=== PATIENT | female | born 1995 | race African-American/Black ===

== ENCOUNTER 2017-08-01 23:06 | Emergency (ER) | payer OTHER | END 2017-08-01 23:57 | disposition left against medical advice (07) | LOC: ER 23:06 | DX: M79.672 Pain in left foot (principal); M54.5 Low back pain; M54.6 Pain in thoracic spine; M54.2 Cervicalgia; W18.39XA Other fall on same level, initial encounter; Y93.89 Activity, other specified; Y99.8 Other external cause status; Y92.89 Other specified places as the place of occurrence of the external cause | CPT/HCPCS: 99281 ==

== ENCOUNTER 2018-01-02 12:42 | Emergency (ER) | payer OTHER ==
[2018-01-02 13:12] LABS: URINE HCG POC HCG POSITIVE (Negative)
[2018-01-02 13:22] LABS: BILIRUBIN,URINE NEGATIVE (NEG); CLARITY,URINE CLEAR; COLOR,URINE YELLOW; GLUCOSE,URINE NEGATIVE (NEG); NITRITE,URINE NEGATIVE (NEG); PH,URINE 7.5; PROTEIN,URINE NEGATIVE (NEG-TRACE)
[2018-01-02 13:53] LABS: BACTERIA,URINE 0 /HPF (0-FEW); RBC,URINE 0 /HPF (0-2); SQUAMOUS EPITHELIAL CELL,UR MANY /LPF
[2018-01-02 14:31] LABS: ADD MAN DIFF? NO
[2018-01-02 14:34] LABS: BASO % 0 % (0-3); EOS % 1 % (0-3); HEMATOCRIT 27.3 % (36.0-47.0); HEMOGLOBIN 9.3 g/dL (12.0-15.5); LYMPH # 1.3 x10^3/uL (1.0-4.8); LYMPH % 28 % (24-48); MEAN CORPUSCULAR HEMOGLOBIN 32 pg (25-35); MEAN CORPUSCULAR HGB CONC 34 g/dL (31-37); MEAN CORPUSCULAR VOLUME 93 fL (79-100); MONO # 0.4 x10^3/uL (0.0-1.1); MONO % 9 % (0-9); NEUT # 2.8 x10^3uL (1.8-7.7); NEUT % 62 % (31-73); PLATELET COUNT 267 x10^3/uL (140-400); RED BLOOD COUNT 2.94 x10^6/uL (3.50-5.40); RED CELL DISTRIBUTION WIDTH 13.1 % (11.5-14.5); WHITE BLOOD COUNT 4.6 x10^3/uL (4.0-11.0)
[2018-01-02 14:50] LABS: ANION GAP 10 (6-14); BLOOD UREA NITROGEN 9 mg/dL (7-20); BUN/CREATININE RATIO 15 (6-20); CALCIUM 8.6 mg/dL (8.5-10.1); CARBON DIOXIDE 26 mmol/L (21-32); CHLORIDE 104 mmol/L (98-107); CREATININE 0.6 mg/dL (0.6-1.0); GFR 148.6; GLUCOSE 102 mg/dL (70-99); POTASSIUM 3.3 mmol/L (3.5-5.1); SODIUM 140 mmol/L (136-145)
[2018-01-02 15:00] LABS: ALBUMIN 2.8 g/dL (3.4-5.0); ALBUMIN/GLOBULIN RATIO 0.8 (1.0-1.7); ALK PHOS 42 U/L (46-116); ALT (SGPT) 12 U/L (14-59); AST (SGOT) 13 U/L (15-37); LIPASE 134 U/L (73-393); TOTAL BILIRUBIN 0.2 mg/dL (0.2-1.0); TOTAL PROTEIN 6.4 g/dL (6.4-8.2)
[2018-01-03 14:27] LABS: CHLAMYDIA PROBE Negative (Negative); GC PROBE Negative (Negative)
== END 2018-01-02 16:15 | disposition home or self-care (01) ==
LOC: ER 16:15
DX: O23.42 Unspecified infection of urinary tract in pregnancy, second trimester (principal); O23.592 Infection of other part of genital tract in pregnancy, second trimester; N76.0 Acute vaginitis; B96.89 Other specified bacterial agents as the cause of diseases classified elsewhere; O99.012 Anemia complicating pregnancy, second trimester; D64.9 Anemia, unspecified; Z3A.19 19 weeks gestation of pregnancy; Z88.5 Allergy status to narcotic agent; Z88.6 Allergy status to analgesic agent; Z88.8 Allergy status to other drugs, medicaments and biological substances
CPT/HCPCS: 36415; 76805; 76817; 80053; 81001; 81025; 83690; 84702; 85025; 87086; 87491; 87591; 99285-25; Q0111

== ENCOUNTER 2019-06-13 14:43 | Emergency (ER) | payer SELFPAY ==
[~2019-06-13] VITALS: Ht 162.6 cm; Wt 45.4 kg
[~2019-06-13 14:43] MED LIST: CEPH500T PO; METR500T PO; PNV1TABL25 PO
[2019-06-13 15:00] VITALS: BP 119/71
--- NOTE | 2019-06-13 15:10 | PHYS DOC ---
Past Medical History Past Medical History: No Pertinent History Past Surgical History: Other Additional Past Surgical Histo: WISDOM TEETH Alcohol Use: None Drug Use: None Adult General Chief Complaint Chief Complaint: OTHER COMPLAINTS HPI HPI Patient is a 24 year old female who presents after bumping her right lower leg against an unknown object last night around 4 AM. The patient has a small skin tear to the lower leg and says is similar bleeding ever since. Denies any other complaints. Review of Systems Review of Systems Constitutional: Denies fever or chills [] Eyes: Denies change in visual acuity, redness, or eye pain [] HENT: Denies nasal congestion or sore throat [] Respiratory: Denies cough or shortness of breath [] Cardiovascular: No additional information not addressed in HPI [] GI: Denies abdominal pain, nausea, vomiting, bloody stools or diarrhea [] : Denies dysuria or hematuria [] Musculoskeletal: Denies back pain or joint pain [] Integument: Reports skin tear to R lower leg. Neurologic: Denies headache, focal weakness or sensory changes [] Endocrine: Denies polyuria or polydipsia [] Complete systems were reviewed and found to be within normal limits, except as documented in this note. Allergies Allergies Allergies Coded Allergies Type Severity Reaction Last Updated Verified acetaminophen Allergy Intermediate Itching 01/02/18 Yes oxycodone Allergy Intermediate Itching 01/02/18 Yes tioconazole Allergy Intermediate 01/02/18 Yes Physical Exam Physical Exam Constitutional: Well developed, well nourished, no acute distress, non-toxic appearance. [] HENT: Normocephalic, atraumatic, bilateral external ears normal, oropharynx moist, no oral exudates, nose normal. [] Eyes: PERRLA, EOMI, conjunctiva normal, no discharge. [] Neck: Normal range of motion, no tenderness, supple, no stridor. [] Skin: 0.25 cm skin tear to R lower leg. No bleeding noted at this time. Back: No tenderness, no CVA tenderness. [] Extremities: No tenderness, no cyanosis, no clubbing, ROM intact, no edema. [] Neurologic: Alert and oriented X 3, normal motor function, normal sensory function, no focal deficits noted. [] Psychologic: Affect normal, judgement normal, mood normal. [] EKG EKG [] Radiology/Procedures Radiology/Procedures [] Course & Med Decision Making Course & Med Decision Making Pertinent Labs and Imaging studies reviewed. (See chart for details) A medical screening exam was performed on this patient and the patient does not appear to be having a medical emergency. Her symptoms are not of sufficient severity and within reasonable medical probability it is unlikely the absence of immediate medical attention would result in placing the health of the individual (or, with respect to a woman, the health of the woman or her unborn child) in serious jeopardy, serious impairment to bodily functions, or serious dysfunction of any bodily organ or part. If , the patient is not in labor Discussed with patient to put neosporin on wound and keep dressed. Dragon Disclaimer Dragon Disclaimer This electronic medical record was generated, in whole or in part, using a voice recognition dictation system. Departure Departure Impression: Primary Impression: Encounter for medical screening examination Disposition: HOME, SELF-CARE Condition: STABLE Referrals: NO PCP (PCP) Patient Instructions: Medical Screening Exam Additional Instructions: Thank you for visiting [facility]. We appreciate you trusting us with your care. If any additional problems come up don't hesitate to return to visit us. Please follow up with your primary care provider so they can plan additional care if needed and know about the problem that you had. If symptoms worsen come back to the Emergency Department. Any concerning symptoms that start such as chest pain, shortness of air, weakness or numbness on one side of the body, running high fevers or any other concerning symptoms return to the ER. SKIP SALAZAR APRN Jun 13, 2019 15:10
== END 2019-06-13 15:15 | disposition home or self-care (01) ==
LOC: ER 14:43
DX: S81.811A Laceration without foreign body, right lower leg, initial encounter (principal); Z88.5 Allergy status to narcotic agent; Z88.6 Allergy status to analgesic agent; Z88.8 Allergy status to other drugs, medicaments and biological substances; Y28.8XXA Contact with other sharp object, undetermined intent, initial encounter; Y93.89 Activity, other specified; Y92.89 Other specified places as the place of occurrence of the external cause; Y99.8 Other external cause status
CPT/HCPCS: 99281

== ENCOUNTER 2020-02-12 20:30 | Emergency (ER) | payer SELFPAY ==
[~2020-02-12] VITALS: Ht 162.6 cm; Wt 45.0 kg
[2020-02-12] MEDS ORDERED: KETOROLAC 30 MG/ML VIAL. IVP ONE (21:45)
[2020-02-12 21:47] LABS: BASO % 1 % (0-3); EOS % 1 % (0-3); HEMATOCRIT 34.1 % (36.0-47.0); HEMOGLOBIN 11.7 g/dL (12.0-15.5); LYMPH # 1.4 x10^3/uL (1.0-4.8); LYMPH % 19 % (24-48); MEAN CORPUSCULAR HEMOGLOBIN 31 pg (25-35); MEAN CORPUSCULAR HGB CONC 34 g/dL (31-37); MEAN CORPUSCULAR VOLUME 91 fL (79-100); MONO # 0.6 x10^3/uL (0.0-1.1); MONO % 8 % (0-9); NEUT # 5.2 x10^3/uL (1.8-7.7); NEUT % 72 % (31-73); PLATELET COUNT 370 x10^3/uL (140-400); RED BLOOD COUNT 3.73 x10^6/uL (3.50-5.40); RED CELL DISTRIBUTION WIDTH 12.9 % (11.5-14.5); WHITE BLOOD COUNT 7.3 x10^3/uL (4.0-11.0)
[2020-02-12 21:49] LABS: BILIRUBIN,URINE NEGATIVE (NEG); CLARITY,URINE CLEAR; COLOR,URINE YELLOW; NITRITE,URINE NEGATIVE (NEG); PH,URINE 7.5 (<5.0-8.0); PROTEIN,URINE NEGATIVE (NEG-TRACE)
[2020-02-12 21:53] LABS: CALCIUM 8.9 mg/dL (8.5-10.1); CREATININE 0.9 mg/dL (0.6-1.0); GFR 90.9; POTASSIUM 3.4 mmol/L (3.5-5.1)
--- NOTE | 2020-02-12 21:53 | PHYS DOC ---
Past Medical History Past Medical History: UTI (ALMAS JAQUEZ APRN) Past Surgical History: Other Additional Past Surgical Histo: WISDOM TEETH (ALMAS JAQUEZ APRN) Smoking Status: Current Some Day Smoker Alcohol Use: Occasionally Drug Use: None (ALMAS JAQUEZ APRN) General Adult EDM: Chief Complaint: ABDOMINAL PAIN HPI: HPI: Patient is a 25 year old [female patient who presents from home complaining of abdominal pain, constipation, vaginal discharge. Patient reports proximally 3 to 4 days ago she was having anal sex, after that she started to have some lower abdominal discomfort. States she always has a little vaginal discharge, however over the last 2 days it has become itchy, with more discharge. States she has just finished her menstrual cycle, had tried some Monistat as she usually has a yeast infection following her menses, but cannot use it anymore because it causes her to break out. States she thinks there might be a problem with her bowels as she has not had a good bowel movement for several days. States she has had diarrhea yesterday and some today, would also reports she had taken some milk of magnesia yesterday. Patient continues to report she thinks most of these symptoms are related to when she had anal sex. (ALMAS JAQUEZ APRN) Review of Systems: Review of Systems: Constitutional: Denies fever or chills. [] Respiratory: Denies cough or shortness of breath. [] Cardiovascular: Denies chest pain or edema. [] GI: Reports intermittent abdominal pain, denies nausea, denies vomiting, denies bloody stool, states she infrequently has bowel movements normally, had diarrhea yesterday and a small episode of diarrhea today : Denies dysuria. [Does report she has had some whitish vaginal discharge today] Musculoskeletal: Denies back pain or joint pain. [] Psychiatric: Denies depression or anxiety. [] (ALMAS JAQUEZ APRN) Heart Score: Risk Factors: Risk Factors: DM, Current or recent (<one month) smoker, HTN, HLP, family history of CAD, obesity. Risk Scores: Score 0 - 3: 2.5% MACE over next 6 weeks - Discharge Home Score 4 - 6: 20.3% MACE over next 6 weeks - Admit for Clinical Observation Score 7 - 10: 72.7% MACE over next 6 weeks - Early Invasive Strategies (ALMAS JAQUEZ APRN) Allergies: Allergies: Allergies Coded Allergies Type Severity Reaction Last Updated Verified acetaminophen Allergy Intermediate Itching 01/02/18 Yes oxycodone Allergy Intermediate Itching 01/02/18 Yes tioconazole Allergy Intermediate 01/02/18 Yes (ALMAS JAQUEZ APRN) Physical Exam: PE: Constitutional: Well developed, well nourished, no acute distress, non-toxic appearance. Conversational [] HENT: Normocephalic, atraumatic, nose normal. [] Eyes: PERRLA, EOMI, conjunctiva normal, no discharge. [] Neck: Normal range of motion, no tenderness, supple, no stridor. [] Cardiovascular:Heart rate regular rhythm, no murmur [] Lungs & Thorax: Bilateral breath sounds clear to auscultation [] Abdomen: Bowel sounds normal, soft, no tenderness, no masses, no pulsatile masses. [] Skin: Warm, dry, no erythema, no rash. [] Back: No tenderness, no CVA tenderness. [] Extremities: No tenderness, no cyanosis, no clubbing, ROM intact, no edema. [] Neurologic: Alert and oriented X 3, normal motor function, normal sensory function, no focal deficits noted. [] Psychologic: Affect normal, judgement normal, mood normal. [] (ALMAS JAQUEZ APRN) Current Patient Data: Labs: Laboratory Tests Test 02/12/20 20:54 POC Urine HCG, Qualitative Hcg negative (Negative) Vital Signs: Vital Signs Date Time Temp Pulse Resp B/P (MAP) Pulse Ox O2 Delivery O2 Flow Rate FiO2 02/12/20 21:15 99.3 90 20 115/64 (81) 100 Room Air 99.3 (ALMAS JAQUEZ APRN) EKG: EKG: [] (ALMAS JAQUEZ APRN) Radiology/Procedures: Radiology/Procedures: [] PATIENT: FRANK MUNOZ MACCOUNT: [id number] : 1995 LOCATION: ER AGE: 25 SEX: F EXAM STATUS: REG ER ORD. PHYSICIAN: ALMAS JAQUEZ APRN REASON: constipation PROCEDURE: KUB Examination: KUB History: Reason: constipation / Spl. Instructions: / History: Comparison/Correlation: None Findings: Frontal view of the abdomen was obtained. Debris within the stomach noted. No significantly distended bowel noted. No significant stool within the colon. Linear density overlies the midline of the upper sacrum. Correlate for external artifact. Bony structures are unremarkable. No suspicious calcific patients. Impression: No bowel obstruction or findings of significant stool in the colon. Electronically signed by: Ruy Hernandez MD (02/12/2020 10:48 PM) [facility] DICTATED and SIGNED BY: RUY HERNANDEZ MD DATE: 02/12/202247 (ALMAS JAQUEZ APRN) Course & Med Decision Making: Course & Med Decision Making Pertinent Labs and Imaging studies reviewed. (See chart for details) [] Reviewed imaging and lab results patient, with noted trichomonas. Discussed treatment here versus patient taking medication at home, patient reports she rather take at home where she has food and can rest afterwards. Discussed importance of ensuring sexual partner is aware of her diagnosis, and importance of him being treated as well. Patient reports understanding with this. Discussed importance of hydration, discussed safer sex practices especially while being treated for trichomonas. Discussed fungal primary care, provided options for patient to follow-up with primary care to further manage her conditions as well as to manage a lipoma on her neck, as well as other concern she has. Patient in agreement with this plan with no further questions or concerns (ALMAS JAQUEZ APRN) Dragon Disclaimer: Dragon Disclaimer: This electronic medical record was generated, in whole or in part, using a voice recognition dictation system. (ALMAS JAQUEZ APRN) Departure Departure Impression: Primary Impression: Trichomoniasis Disposition: HOME, SELF-CARE Condition: GOOD Referrals: NO PCP (PCP) Patient Instructions: Trichomoniasis Additional Instructions: As discussed, make sure you are taking the antibiotic, to be 4 pills all at one time. Take these with some food. Afterwards rest see you do not get upset stomach and vomit them. Make sure that your partner is aware that he needs to be treated as well for trichomonas. No alcohol use for 24 hours before taking the medication or for 48 hours after taking medication otherwise he may become very ill. Try to get into a primary care clinic as we were discussing, to manage her conditions long-term. Try to avoid having intercourse for the next 7 days well your body is recovering from trichomonas, if you going to, make sure using condoms. If you can to continue to having sex, make sure that you are using plenty lubrication to ensure that she did not have additional discomfort. The alice on your neck appears to be a lipoma, you can talk to your primary care provider when you find one to determine if they are comfortable removing that or if they wanted to do further assessment on this. You can take Tylenol or ibuprofen for discomfort as needed. You can take your next dose of ibuprofen when you get up in the morning. Scripts Metronidazole (METRONIDAZOLE) 500 Mg Tablet 2000 MG PO ONCE, #4 TAB Take all 4 tablets at once, take it with food and plenty of water. Avoid alcohol for 48 hours after taking the medication Prov: ALMAS JAQUEZ APRN 02/13/20 Justicifation of Admission Dx: Justifications for Admission: Justification of Admission Dx: N/A (ALMAS JAQUEZ APRN) Attending Signature Attending Signature I have reviewed the PA/PROCUREMENT CONSULTANT's note and plan of care. I was available for consultation as needed during the patient's visit in the emergency department. I agree with the clinical impression, plan, and disposition. (SKIP BRADEN DO) ALMAS JAQUEZ APRN Feb 12, 2020 21:53 SKIP BRADEN DO Feb 13, 2020 02:05
[2020-02-12 21:59] LABS: BACTERIA,URINE MOD /HPF (0-FEW); RBC,URINE 0 /HPF (0-2); SQUAMOUS EPITHELIAL CELL,UR FEW /LPF
--- NOTE | 2020-02-12 22:50 | RAD ---
Examination: KUB History: Reason: constipation / Spl. Instructions: / History: Comparison/Correlation: None Findings: Frontal view of the abdomen was obtained. Debris within the stomach noted. No significantly distended bowel noted. No significant stool within the colon. Linear density overlies the midline of the upper sacrum. Correlate for external artifact. Bony structures are unremarkable. No suspicious calcific patients. Impression: No bowel obstruction or findings of significant stool in the colon. Electronically signed by: Ruy Quiroz MD (02/12/2020 10:48 PM) [facility]
[2020-02-13] MEDS ORDERED: METR-34 PO (00:06)
[2020-02-13 01:24] VITALS: BP 110/69
[2020-02-16 00:08] LABS: GC PROBE Negative (Negative)
== END 2020-02-13 01:28 | disposition home or self-care (01) ==
LOC: ER 20:30
DX: A59.9 Trichomoniasis, unspecified (principal); R10.30 Lower abdominal pain, unspecified; R19.7 Diarrhea, unspecified; Z87.891 Personal history of nicotine dependence; Z98.890 Other specified postprocedural states; Z88.5 Allergy status to narcotic agent; Z88.6 Allergy status to analgesic agent; Z88.8 Allergy status to other drugs, medicaments and biological substances
CPT/HCPCS: 36415; 74018; 80048; 81001; 81025; 85025; 87491; 87591; 96374; 99284; J1885; Q0111

== ENCOUNTER 2020-02-14 11:22 | Emergency (ER) | payer SELFPAY ==
[2020-02-13 01:24] VITALS: BP 110/69
[~2020-02-14 11:22] MED LIST changes: +METR-34 PO
== END 2020-02-14 11:48 | disposition left against medical advice (07) ==
LOC: ER 11:22
DX: Z76.0 Encounter for issue of repeat prescription (principal); Z53.21 Procedure and treatment not carried out due to patient leaving prior to being seen by health care provider

== ENCOUNTER 2020-02-16 23:46 | Emergency (ER) | payer SELFPAY ==
[~2020-02-16] VITALS: Ht 162.6 cm; Wt 45.4 kg
[2020-02-17] MEDS ORDERED: ONDANSETRON PF 4 MG/2 ML VIAL. IV ONE (00:15)
[2020-02-17] MEDS ORDERED: fentaNYL PF VIAL 100 MCG/2 ML VIAL IV ONE (00:15)
[2020-02-17] MEDS ORDERED: IV NORMAL SALINE 1000ML BAG 1,000 ML IV ONE (00:15)
[2020-02-17 00:18] LABS: BASO % 0 % (0-3); EOS % 0 % (0-3); HEMATOCRIT 32.5 % (36.0-47.0); HEMOGLOBIN 10.9 g/dL (12.0-15.5); LYMPH # 1.9 x10^3/uL (1.0-4.8); LYMPH % 25 % (24-48); MEAN CORPUSCULAR HEMOGLOBIN 30 pg (25-35); MEAN CORPUSCULAR HGB CONC 34 g/dL (31-37); MEAN CORPUSCULAR VOLUME 90 fL (79-100); MONO # 0.7 x10^3/uL (0.0-1.1); MONO % 9 % (0-9); NEUT # 4.9 x10^3/uL (1.8-7.7); NEUT % 65 % (31-73); PLATELET COUNT 444 x10^3/uL (140-400); RED CELL DISTRIBUTION WIDTH 13.3 % (11.5-14.5); WHITE BLOOD COUNT 7.5 x10^3/uL (4.0-11.0)
[2020-02-17 00:26] LABS: BILIRUBIN,URINE NEGATIVE (NEG); CLARITY,URINE CLEAR; COLOR,URINE AMBER; NITRITE,URINE NEGATIVE (NEG); PH,URINE 8.5 (<5.0-8.0); PROTEIN,URINE NEGATIVE (NEG-TRACE)
[2020-02-17 00:27] LABS: CALCIUM 9.1 mg/dL (8.5-10.1); GFR 80.5; POTASSIUM 3.5 mmol/L (3.5-5.1)
[2020-02-17 00:32] LABS: ALBUMIN 3.5 g/dL (3.4-5.0); ALBUMIN/GLOBULIN RATIO 0.8 (1.0-1.7); TOTAL BILIRUBIN 0.4 mg/dL (0.2-1.0); TOTAL PROTEIN 8.1 g/dL (6.4-8.2)
[2020-02-17 00:34] LABS: BACTERIA,URINE FEW /HPF (0-FEW); RBC,URINE RARE /HPF (0-2); SQUAMOUS EPITHELIAL CELL,UR MOD /LPF
[2020-02-17] MEDS ORDERED: IOHEXOL 300 MG/ML 100ML VIAL. IV ONE (00:45)
[2020-02-17] MEDS ORDERED: CONTRAST GIVEN. MC PRN (00:45)
--- NOTE | 2020-02-17 01:26 | RAD ---
CT abdomen and pelvis with contrast: Reason for examination: Abdominal pain. Helical images were obtained through the abdomen pelvis with intravenous administration of 75 cc Omnipaque 300. Reconstruction was performed in sagittal and coronal planes. Exposure: One or more of the following individualized dose reduction techniques were utilized for this examination: 1. Automated exposure control 2. Adjustment of the mA and/or kV according to patient size 3. Use of iterative reconstruction technique. The lung bases are clear. The heart size is normal with no pericardial effusion. No abnormality seen at the liver, spleen, adrenal glands, gallbladder or pancreas. The kidneys show no renal masses, renal calculi, hydronephrosis or evidence of obstructive uropathy. The colon shows no diverticulosis or diverticulitis or colitis. There is very little intra-abdominal fat and the appendix is not optimally visualized. Small intestinal tract shows no abnormal dilatation or evidence of bowel obstruction. No abnormality seen at the stomach. The abdominal aorta and inferior vena cava show no gross abnormalities. The bladder is not optimally distended. The uterus is somewhat heterogeneous. In the adnexa probably within the ovaries appear to be complex cystic lesions measuring 4.5 cm on the right and 3.3 cm on the left. Further evaluation with ultrasound should be considered. No definite free fluid is seen. No acute bony abnormalities are present. IMPRESSION: Heterogeneous density to the uterus. Complex cystic appearing lesions bilaterally in the adnexa probably ovarian. Recommend further evaluation with pelvic ultrasound. Electronically signed by: Breanna Gracia MD (02/17/2020 1:23 AM) [id number]
[2020-02-17] MEDS ORDERED: NAPR-514 PO (01:36)
--- NOTE | 2020-02-17 01:36 | PHYS DOC ---
Past Medical History Past Medical History: UTI Past Surgical History: Other Additional Past Surgical Histo: WISDOM TEETH Smoking Status: Current Every Day Smoker Alcohol Use: Occasionally Drug Use: None General Adult EDM: Chief Complaint: ABDOMINAL PAIN HPI: HPI: Patient is a 25-year-old female who presents with a 3-day history of right-sided abdominal pain. She states the pain started around the time of her menstrual cycle. She states it waxed and waned but now seems constant. She denies any nausea or vomiting. She has had no fever chills or sweats. No dysuria or gross hematuria.] Review of Systems: Review of Systems: Constitutional: Denies fever or chills. [] Eyes: Denies change in visual acuity. [] HENT: Denies nasal congestion or sore throat. [] Respiratory: Denies cough or shortness of breath. [] Cardiovascular: Denies chest pain or edema. [] GI: Per HPI. [] : Per HPI [] Musculoskeletal: Denies back pain or joint pain. [] Integument: Denies rash. [] Neurologic: Denies headache, focal weakness or sensory changes. [] Endocrine: Denies polyuria or polydipsia. [] Lymphatic: Denies swollen glands. [] Psychiatric: Denies depression or anxiety. [] Heart Score: Risk Factors: Risk Factors: DM, Current or recent (<one month) smoker, HTN, HLP, family history of CAD, obesity. Risk Scores: Score 0 - 3: 2.5% MACE over next 6 weeks - Discharge Home Score 4 - 6: 20.3% MACE over next 6 weeks - Admit for Clinical Observation Score 7 - 10: 72.7% MACE over next 6 weeks - Early Invasive Strategies Current Medications: Current Medications Medications (Trade) Dose Ordered Sig/Marta Start Time Stop Time Status Last Admin Dose Admin Fentanyl Citrate (Fentanyl 2ml Vial) 50 mcg 1X ONCE 02/17/20 00:15 02/17/20 00:16 DC 02/17/20 00:32 50 MCG Info (CONTRAST GIVEN -- Rx MONITORING) 1 each PRN DAILY PRN 02/17/20 00:45 02/19/20 00:44 Iohexol (Omnipaque 300 Mg/ml) 75 ml 1X ONCE 02/17/20 00:45 02/17/20 00:46 DC 02/17/20 00:55 75 ML Ondansetron HCl (Zofran) 4 mg 1X ONCE 02/17/20 00:15 02/17/20 00:16 DC 02/17/20 00:31 4 MG Sodium Chloride 1,000 ml @ 1,000 mls/hr 1X ONCE 02/17/20 00:15 02/17/20 01:14 DC 02/17/20 00:30 1,000 MLS/HR Allergies: Allergies: Allergies Coded Allergies Type Severity Reaction Last Updated Verified acetaminophen Allergy Intermediate Itching 01/02/18 Yes oxycodone Allergy Intermediate Itching 01/02/18 Yes tioconazole Allergy Intermediate 01/02/18 Yes Physical Exam: PE: Constitutional: Well developed, well nourished, moderate distress, non-toxic appearance. [] HENT: Normocephalic, atraumatic, bilateral external ears normal, oropharynx moist, no oral exudates, nose normal. [] Eyes: PERRLA, EOMI, conjunctiva normal, no discharge. [] Neck: Normal range of motion, no tenderness, supple, no stridor. [] Cardiovascular:Heart rate regular rhythm, no murmur [] Lungs & Thorax: Bilateral breath sounds clear to auscultation [] Abdomen: Diffusely tender to palp no rebound or guarding bowel sounds x4 quadrants. [] Skin: Warm, dry, no erythema, no rash. [] Back: No tenderness, no CVA tenderness. [] Extremities: No tenderness, no cyanosis, no clubbing, ROM intact, no edema. [] Neurologic: Alert and oriented X 3, normal motor function, normal sensory function, no focal deficits noted. [] Psychologic: Extremely anxious [] Current Patient Data: Labs: Laboratory Tests Test 02/17/20 00:10 02/17/20 00:11 02/17/20 00:24 White Blood Count 7.5 x10^3/uL (4.0-11.0) Red Blood Count 3.60 x10^6/uL (3.50-5.40) Hemoglobin 10.9 g/dL (12.0-15.5) L Hematocrit 32.5 % (36.0-47.0) L Mean Corpuscular Volume 90 fL (79-100) Mean Corpuscular Hemoglobin 30 pg (25-35) Mean Corpuscular Hemoglobin Concent 34 g/dL (31-37) Red Cell Distribution Width 13.3 % (11.5-14.5) Platelet Count 444 x10^3/uL (140-400) H Neutrophils (%) (Auto) 65 % (31-73) Lymphocytes (%) (Auto) 25 % (24-48) Monocytes (%) (Auto) 9 % (0-9) Eosinophils (%) (Auto) 0 % (0-3) Basophils (%) (Auto) 0 % (0-3) Neutrophils # (Auto) 4.9 x10^3/uL (1.8-7.7) Lymphocytes # (Auto) 1.9 x10^3/uL (1.0-4.8) Monocytes # (Auto) 0.7 x10^3/uL (0.0-1.1) Eosinophils # (Auto) 0.0 x10^3/uL (0.0-0.7) Basophils # (Auto) 0.0 x10^3/uL (0.0-0.2) Sodium Level 138 mmol/L (136-145) Potassium Level 3.5 mmol/L (3.5-5.1) Chloride Level 100 mmol/L (98-107) Carbon Dioxide Level 29 mmol/L (21-32) Anion Gap 9 (6-14) Blood Urea Nitrogen 7 mg/dL (7-20) Creatinine 1.0 mg/dL (0.6-1.0) Estimated GFR (Cockcroft-Gault) 80.5 BUN/Creatinine Ratio 7 (6-20) Glucose Level 87 mg/dL (70-99) Calcium Level 9.1 mg/dL (8.5-10.1) Total Bilirubin 0.4 mg/dL (0.2-1.0) Aspartate Amino Transferase (AST) 13 U/L (15-37) L Alanine Aminotransferase (ALT) 15 U/L (14-59) Alkaline Phosphatase 56 U/L (46-116) Total Protein 8.1 g/dL (6.4-8.2) Albumin 3.5 g/dL (3.4-5.0) Albumin/Globulin Ratio 0.8 (1.0-1.7) L Lipase 77 U/L (73-393) Urine Collection Type Unknown Urine Color Elisabeth Urine Clarity Clear Urine pH 8.5 (<5.0-8.0) Urine Specific [place] 1.015 (1.000-1.030) Urine Protein Negative mg/dL (NEG-TRACE) Urine Glucose (UA) Negative mg/dL (NEG) Urine Ketones (Stick) 15 mg/dL (NEG) Urine Blood Negative (NEG) Urine Nitrite Negative (NEG) Urine Bilirubin Negative (NEG) Urine Urobilinogen Dipstick 1.0 mg/dL (0.2 mg/dL) Urine Leukocyte Esterase Small (NEG) Urine RBC Rare /HPF (0-2) Urine WBC 5-10 /HPF (0-4) Urine Squamous Epithelial Cells Mod /LPF Urine Bacteria Few /HPF (0-FEW) POC Urine HCG, Qualitative Hcg negative (Negative) Laboratory Tests 02/17/20 00:10 Laboratory Tests 02/17/20 00:10 Vital Signs: Vital Signs Date Time Temp Pulse Resp B/P (MAP) Pulse Ox O2 Delivery O2 Flow Rate FiO2 02/17/20 00:32 18 100 Room Air 02/17/20 00:15 98.3 77 135/81 (99) 98.3 EKG: EKG: [] Radiology/Procedures: Radiology/Procedures: []REASON: abdominal pain PROCEDURE: CT ABD PELV W/ IV CONTRST ONLY CT abdomen and pelvis with contrast: Reason for examination: Abdominal pain. Helical images were obtained through the abdomen pelvis with intravenous administration of 75 cc Omnipaque 300. Reconstruction was performed in sagittal and coronal planes. Exposure: One or more of the following individualized dose reduction techniques were utilized for this examination: 1. Automated exposure control 2. Adjustment of the mA and/or kV according to patient size 3. Use of iterative reconstruction technique. The lung bases are clear. The heart size is normal with no pericardial effusion. No abnormality seen at the liver, spleen, adrenal glands, gallbladder or pancreas. The kidneys show no renal masses, renal calculi, hydronephrosis or evidence of obstructive uropathy. The colon shows no diverticulosis or diverticulitis or colitis. There is very little intra-abdominal fat and the appendix is not optimally visualized. Small intestinal tract shows no abnormal dilatation or evidence of bowel obstruction. No abnormality seen at the stomach. The abdominal aorta and inferior vena cava show no gross abnormalities. The bladder is not optimally distended. The uterus is somewhat heterogeneous. In the adnexa probably within the ovaries appear to be complex cystic lesions measuring 4.5 cm on the right and 3.3 cm on the left. Further evaluation with ultrasound should be considered. No definite free fluid is seen. No acute bony abnormalities are present. IMPRESSION: Heterogeneous density to the uterus. Complex cystic appearing lesions bilaterally in the adnexa probably ovarian. Recommend further evaluation with pelvic ultrasound. Course & Med Decision Making: Course & Med Decision Making Pertinent Labs and Imaging studies reviewed. (See chart for details) [ED course: Evaluation reveals a 25-year-old female with abdominal pain. CT scan showed complex ovarian cysts bilaterally. I discussed this with the arin ent and let her know that she would need to follow-up with an LINEN ROOM WORKER very soon to schedule an ultrasound. This is likely related to her menstrual cycle.] Dragon Disclaimer: Dragon Disclaimer: This electronic medical record was generated, in whole or in part, using a voice recognition dictation system. Departure Departure Impression: Primary Impression: Ovarian cyst Qualified Codes: N83.201 - Unspecified ovarian cyst, right side; N83.202 - Unspecified ovarian cyst, left side Disposition: HOME, SELF-CARE Condition: STABLE Referrals: NO PCP (PCP) JANIE JONES Jr, MD Follow with a fishing tool operator to schedule an ultrasound to further evaluate your ovarian cysts Patient Instructions: Abdominal Pain, Ovarian Cyst Additional Instructions: It is very important that you follow with a fishing tool operator to have an ultrasound to further evaluate your ovarian cyst Scripts Naproxen (NAPROXEN) 500 Mg Tablet 1 TAB PO BID PRN for PAIN, #30 TAB 1 Refill Prov: ROLLY SETHI DO 02/17/20 Justicifation of Admission Dx: Justifications for Admission: Justification of Admission Dx: ROLLY Singh DO Feb 17, 2020 01:36
[2020-02-17 01:40] VITALS: BP 108/65
== END 2020-02-17 02:10 | disposition home or self-care (01) ==
LOC: ER 23:46
DX: N83.201 Unspecified ovarian cyst, right side (principal); N83.202 Unspecified ovarian cyst, left side; F17.200 Nicotine dependence, unspecified, uncomplicated; Z98.890 Other specified postprocedural states; Z88.5 Allergy status to narcotic agent; Z88.8 Allergy status to other drugs, medicaments and biological substances
CPT/HCPCS: 36415; 74177; 80053; 81001; 81025; 83690; 85025; 87086; 96374; 96375; 99285; J2405; J3010; J7030; Q9967

== ENCOUNTER 2021-03-11 14:04 | Emergency (ER) | payer SELFPAY ==
[~2021-03-11] VITALS: Ht 162.6 cm; Wt 50.0 kg
[~2021-03-11 14:04] MED LIST changes: +NAPR-514 PO
[2021-03-11 14:08] VITALS: BP 98/55
[2021-03-11] MEDS ORDERED: ACYC-12 PO (14:38)
--- NOTE | 2021-03-11 14:44 | PHYS DOC ---
Past Medical History Past Medical History: UTI Past Surgical History: Other Additional Past Surgical Histo: WISDOM TEETH Smoking Status: Current Every Day Smoker Alcohol Use: Occasionally Drug Use: None General Adult EDM: Chief Complaint: MEDICATION REFILL HPI: HPI: 26-year-old -I[place] female presents the ED requesting acyclovir medication refill. Patient states she has a history of herpes labialis for the past years has had an outbreak on her right inner labia for the past 3 days. States her primary care physician is no longer in practice and is unable to obtain a medication refill. Reports normal menses every month. Is not taking any prescribed medications. Is sexually active but denies any abnormal vaginal discharge, itching or odor. No active vaginal bleeding, dysuria, hematuria, fever, flank pain, nausea or vomiting. Review of Systems: Review of Systems: Constitutional: Denies fever or chills. [] Eyes: Denies change in visual acuity. [] HENT: Denies nasal congestion or sore throat. [] Respiratory: Denies cough or shortness of breath. [] Cardiovascular: Denies chest pain or edema. [] GI: Denies abdominal pain, nausea, vomiting, : Denies dysuria or hematuria Musculoskeletal: Denies back pain or joint pain. [] Integument: Denies diaphoresis or purulent drainage Neurologic: Denies focal weakness or sensory changes. [] Psychiatric: Denies depression or anxiety. [] Heart Score: C/O Chest Pain: No Risk Factors: Risk Factors: DM, Current or recent (<one month) smoker, HTN, HLP, family history of CAD, obesity. Risk Scores: Score 0 - 3: 2.5% MACE over next 6 weeks - Discharge Home Score 4 - 6: 20.3% MACE over next 6 weeks - Admit for Clinical Observation Score 7 - 10: 72.7% MACE over next 6 weeks - Early Invasive Strategies Allergies: Allergies: Allergies Coded Allergies Type Severity Reaction Last Updated Verified acetaminophen Allergy Intermediate Itching 01/02/18 Yes oxycodone Allergy Intermediate Itching 01/02/18 Yes tioconazole Allergy Intermediate 01/02/18 Yes Physical Exam: PE: Constitutional: Well developed, well nourished, no acute distress, non-toxic appearance, very lean and thin HENT: Normocephalic, atraumatic, Eyes: EOMI, conjunctiva normal, no discharge. Neck: Normal range of motion, supple, Cardiovascular: S1/2 present, regular rhythm Lungs & Thorax: Speaking in full sentences, bilateral equal chest rise, no tachypnea or increased work of breathing Skin: Warm, dry, no erythema, no rash. [] Back: No tenderness, no CVA tenderness. [] Extremities: No tenderness, no cyanosis, Neurologic: Alert and oriented X 3, normal motor function, normal sensory function, no focal deficits noted. [] Psychologic: Affect normal, judgement normal, mood normal. [] Pelvic: pt declines Current Patient Data: Vital Signs: Vital Signs Date Time Temp Pulse Resp B/P (MAP) Pulse Ox O2 Delivery O2 Flow Rate FiO2 03/11/21 14:08 98.2 68 16 98/55 (79) 100 Room Air 98.2 EKG: EKG: [] Radiology/Procedures: Radiology/Procedures: [] Course & Med Decision Making: Course & Med Decision Making Pertinent Labs and Imaging studies reviewed. (See chart for details) Encounter for medication refill for acyclovir. Patient does state this is her second outbreak but is declining physical exam due to uncomfortable nature. Is also declining urinalysis for test. Patient denies any associated rash or increased warmth to infection. Will prescribe cefdinir for 7 days. Patient hemodynamically stable. Will discharge home with strict ED return precautions were given for rash, fever, redness or worsening vaginal pain. Encouraged urgent outpatient follow-up with PMD. Life-threatening processes were considered but are low suspicion at this time, given history, physical exam and ED workup. Pt was educated on all prescription medications and adverse effects. All patient's questions were answered and pt was stable at time of discharge. Life/limb-threatening differential includes but is not limited to, erythema multiforme, moreau-izabella syndrome, toxic epidermal necrolysis, staphylococcal scalded skin syndrome, necrotizing fasciitis/myositis/cellulitis, purpura fulminans, heparin or warfarin induced skin necrosis, angioedema, anaphylaxis drug rash, disseminated intravascular coagulation, disseminated gonococcal disease, vasculitis, septicemia, petechial disorder or coagulopathy, viral exanthem, Kawasaki's disease or life-threatening burn requiring burn center management or escharotomy. I have spoken with the patient and/or caregivers. I explained the patient's condition, diagnoses and treatment plan based on the information available to me at this time. I have answered the patient and/or caregiver's questions and addressed any concerns. The patient and/or caregivers have a good understanding of patient's diagnosis, condition and treatment plan as can be expected at this point. Vital signs have been stable. Patient's condition is stable and appropriate for discharge from the emergency department. Patient will pursue further outpatient evaluation with primary care physician or other designated or consulting physician as outlined in the discharge instructions. The patient and/or caregivers are agreeable to this plan of care and follow-up instructions have been explained in detail. The patient and/or caregivers have received these instructions in written form and have expressed an understanding of the discharge instructions. The patient and/or caregivers are aware that any significant change of condition or worsening of symptoms should prompt immediate return to this or the closest emergency department or call to 911. Zaid Disclaimer: Zaid Disclaimer: This electronic medical record was generated, in whole or in part, using a voice recognition dictation system. Departure Departure Impression: Primary Impression: Encounter for medication refill Additional Impression: Herpes labialis without complication Disposition: 01 HOME / SELF CARE / HOMELESS Condition: STABLE Referrals: NO PCP (PCP) Follow-up with your primary care physician in 24 to 48 hours OR FOLLOW UP WITH FAMILY MEDICINE: [address], [address] [place] [address] Patient Instructions: Herpes Labialis, Medication Refill, Emergency Department Additional Instructions: EMERGENCY DEPARTMENT GENERAL DISCHARGE INSTRUCTIONS Thank you for coming to [facility] Emergency Department (ED) today and trusting us with you care. We trust that you had a positive experience in our Emergency Department. If you wish to speak to the department management, you may call the Director at [phone]. YOUR FOLLOW UP INSTRUCTIONS ARE FOLLOWS: 1. Do you have a private Doctor? If you do not have a private doctor, please ask for a resource list of physicians or clinics that may be able to assist you with follow up care. ADDITIONAL INSTRUCTIONS AND INFORMATION: 1. Your care today has been supervised by a physician who is specially trained in emergency care. Many problems require more than one evaluation for a complete diagnosis and treatment. We recommend that you schedule your follow up appointment as recommended to ensure complete treatment of you illness or injury. If you are unable to obtain follow up care and continue to have a problem, or if your condition worsens, we recommend that you return to the ED. 2. We are not able to safely determine your condition over the phone nor are we able to give sound medical advice over the phone. For these safety reasons, if you call for medical advice we will ask you to come to the ED for further evaluation. 3. If you have any questions regarding these discharge instructions please call the ED at [phone]. SAFETY INFORMATION: In the interest of safety, wellness, and injury prevention; we encourage you to wear your sealbelt, if you smoke; quite smoking, and we encourage family to use a protective helmet for bicycling and other sporting events that present an increased risk for head injury. IF YOUR SYMPTOMS WORSEN OR NEW SYMPTOMS DEVELOP, OR YOU HAVE CONCERNS ABOUT YOUR CONDITION; OR IF YOUR CONDITION WORSENS WHILE YOU ARE WAITING FOR YOUR FOLLOW UP APPOINTMENT; EITHER CONTACT YOUR PRIMARY CARE DOCTOR, THE PHYSICIAN WHOSE NAME AND NUMBER YOU WERE GIVEN, OR RETURN TO THE ED IMMEDIATELY. Scripts Acyclovir (ACYCLOVIR) 400 Mg Tablet 1 TAB PO TID for 7 Days, #21 TAB Prov: MILLER SMITH DO 03/11/21 MILLER SMITH DO Mar 11, 2021 14:44
== END 2021-03-11 15:03 | disposition home or self-care (01) ==
LOC: ER 14:04
DX: B00.1 Herpesviral vesicular dermatitis (principal); Z76.0 Encounter for issue of repeat prescription; F17.200 Nicotine dependence, unspecified, uncomplicated; Z88.5 Allergy status to narcotic agent; Z88.6 Allergy status to analgesic agent; Z88.8 Allergy status to other drugs, medicaments and biological substances
CPT/HCPCS: 99283

== ENCOUNTER 2021-04-05 12:23 | Emergency (ER) | payer SELFPAY ==
[~2021-04-05] VITALS: Ht 162.6 cm; Wt 51.0 kg
[~2021-04-05 12:23] MED LIST changes: +ACYC-12 PO
[2021-04-05 12:45] VITALS: BP 132/68
[2021-04-05 13:38] LABS: BILIRUBIN,URINE NEGATIVE (NEG); CLARITY,URINE CLEAR; NITRITE,URINE NEGATIVE (NEG); PROTEIN,URINE NEGATIVE (NEG-TRACE); UROBILINOGEN,URINE 0.2 mg/dL (0.2 mg/dL)
[2021-04-05 13:45] LABS: COLOR,URINE STRAW
[2021-04-05 13:46] LABS: BACTERIA,URINE MANY /HPF (0-FEW)
[2021-04-05 13:48] LABS: RBC,URINE 0 /HPF (0-2); WBC,URINE 0 /HPF (0-4)
--- NOTE | 2021-04-05 14:30 | PHYS DOC ---
Past Medical History Past Medical History: UTI Additional Past Medical Histor: HSV Past Surgical History: Other Additional Past Surgical Histo: WISDOM TEETH Smoking Status: Current Every Day Smoker Alcohol Use: Occasionally Drug Use: None General Adult EDM: Chief Complaint: VAGINAL PROBLEM HPI: HPI: Patient is a 26 year old female who presents to the ED today complaining of vaginal discharge with itching, patient states symptoms have been going on for almost 2 weeks. She said 2 weeks ago she was treated for vaginal herpes. Patient denies any concerns for STDs right now. Review of Systems: Review of Systems: Constitutional: Denies fever or chills. [] GI: Denies abdominal pain, nausea, vomiting, bloody stools or diarrhea. [] : Denies dysuria. [] Female : Reports vaginal discharge Musculoskeletal: Denies back pain or joint pain. [] Integument: Denies rash. [] Neurologic: Denies headache, focal weakness or sensory changes. [] Psychiatric: Denies depression or anxiety. [] Heart Score: C/O Chest Pain: N/A Risk Factors: Risk Factors: DM, Current or recent (<one month) smoker, HTN, HLP, family history of CAD, obesity. Risk Scores: Score 0 - 3: 2.5% MACE over next 6 weeks - Discharge Home Score 4 - 6: 20.3% MACE over next 6 weeks - Admit for Clinical Observation Score 7 - 10: 72.7% MACE over next 6 weeks - Early Invasive Strategies Allergies: Allergies: Allergies Coded Allergies Type Severity Reaction Last Updated Verified acetaminophen Allergy Intermediate Itching 01/02/18 Yes oxycodone Allergy Intermediate Itching 01/02/18 Yes tioconazole Allergy Intermediate 01/02/18 Yes Physical Exam: PE: Constitutional: Well developed, well nourished, no acute distress, non-toxic appearance. [] Abdomen: Bowel sounds normal, soft, no tenderness, no masses, no pulsatile masses. [] Pelvic exam External pelvic region appears normal, cervix visualized, no CMT, no adnexal tenderness, small amount of white discharge in the vaginal vault. Skin: Warm, dry, no erythema, no rash. [] Back: No tenderness, no CVA tenderness. [] Extremities: No tenderness, no cyanosis, no clubbing, ROM intact, no edema. [] Neurologic: Alert and oriented X 3, normal motor function, normal sensory fun ction, no focal deficits noted. [] Psychologic: Affect normal, judgement normal, mood normal. [] Current Patient Data: Labs: Laboratory Tests Test 04/05/21 12:55 04/05/21 13:25 Urine Collection Type Unknown Urine Color Straw Urine Clarity Clear Urine pH 6.0 (<5.0-8.0) Urine Specific [place] <=1.005 (1.000-1.030) Urine Protein Negative mg/dL (NEG-TRACE) Urine Glucose (UA) Negative mg/dL (NEG) Urine Ketones (Stick) Negative mg/dL (NEG) Urine Blood Negative (NEG) Urine Nitrite Negative (NEG) Urine Bilirubin Negative (NEG) Urine Urobilinogen Dipstick 0.2 mg/dL (0.2 mg/dL) Urine Leukocyte Esterase Negative (NEG) Urine RBC 0 /HPF (0-2) Urine WBC 0 /HPF (0-4) Urine Squamous Epithelial Cells Many /LPF Urine Bacteria Many /HPF (0-FEW) POC Urine HCG, Qualitative Hcg negative (Negative) Microbiology 04/05/21 Wet Prep - Final, Complete Vital Signs: Vital Signs Date Time Temp Pulse Resp B/P (MAP) Pulse Ox O2 Delivery O2 Flow Rate FiO2 04/05/21 12:45 98.1 76 16 132/68 (89) 99 Room Air 98.1 EKG: EKG: [] Radiology/Procedures: Radiology/Procedures: [] Course & Med Decision Making: Course & Med Decision Making Pertinent Labs and Imaging studies reviewed. (See chart for details) This is a 26-year-old female patient presented to the ED today with vaginal discharge for 2 weeks. Negative urine hCG, UA negative for infection, wet prep negative for clue cells. Discharge to home. Follow-up with OB/PCP Zaid Disclaimer: Zaid Disclaimer: This electronic medical record was generated, in whole or in part, using a voice recognition dictation system. Departure Departure Impression: Primary Impression: Vaginal discharge Additional Impression: Vaginal itching Disposition: 01 HOME / SELF CARE / HOMELESS Condition: STABLE Referrals: NO PCP (PCP) Patient Instructions: Vaginitis, [id number] Additional Instructions: You were evaluated in the emergency room. Your work-up was negative for any acute findings. Please follow-up with your [employer] in the next 1 to 2 weeks or your primary care doctor NAI KAISER APRN Apr 05, 2021 14:30
[2021-04-06 19:13] LABS: GC PROBE Negative (Negative)
== END 2021-04-05 14:40 | disposition home or self-care (01) ==
LOC: ER 12:23
DX: N89.8 Other specified noninflammatory disorders of vagina (principal); L29.8 Other pruritus; F17.200 Nicotine dependence, unspecified, uncomplicated; Z88.5 Allergy status to narcotic agent; Z88.6 Allergy status to analgesic agent; Z88.8 Allergy status to other drugs, medicaments and biological substances
CPT/HCPCS: 81001; 81025; 87086; 87491; 87591; 99284; Q0111